=== PATIENT | female | born 1990 | race Caucasian/White ===

== ENCOUNTER 2016-12-04 15:23 | Emergency (ER) | payer BC ==
[2016-12-04 15:42] VITALS: BP 118/72
--- NOTE | 2016-12-04 16:09 | UC ---
Ear Complaint HPI - HPI Summary HPI Summary: LEFT EAR PAIN SINCE THIS MORNING. HAD UPPER RESORATORY INFECTION WITH CONGESTION LAST WEEK. FEVER UNKNOWN, HAS TAKEN IBUPROFEN RECENTLY - History of Current Complaint Chief Complaint: UCEar Stated Complaint: EAR ACHE Time Seen by Provider: 12/04/16 15:37 Hx Obtained From: Patient Hx Last Menstrual Period: 3 WEEKS AGO Onset/Duration: Gradual Onset, Lasting Hours, Still Present Severity Initially: Mild Severity Currently: Mild Pain Intensity: 2 Pain Scale Used: 0-10 Numeric Alleviating Factors: Nothing Associated Signs/Symptoms: Positive: URI Symptoms - Allergies/Home Medications Allergies/Adverse Reactions: Allergies Allergy/AdvReac Type Severity Reaction Status Date / Time No Known Allergies Allergy Verified 12/04/16 15:42 Home Medications: Home Medications Control* 1 tab PO DAILY 12/04/16 [History Confirmed 12/04/16] Ibuprofen TAB* [Advil TAB*] 400 mg PO PRN 12/04/16 [History] Multiple Vitamins W/ Minerals [Multivitamin Adults] 1 tab PO DAILY 12/04/16 [ History Confirmed 12/04/16] PMH/Surg Hx/FS Hx/Imm Hx Previously Healthy: Yes - Surgical History Surgical History: Yes Surgery Procedure, Year, and Place: WISDOM TEETH - Family History Known Family History: Positive: Respiratory Disease - MOTHER COPD - Social History Occupation: Employed Full-time Lives: With Family Alcohol Use: Occasionally Substance Use Type: Marijuana Smoking Status (MU): Never Smoked Tobacco Review of Systems Constitutional: Negative Skin: Negative Eyes: Negative ENT: Ear Ache, Nasal Discharge Respiratory: Negative Cardiovascular: Negative Gastrointestinal: Negative Genitourinary: Negative Motor: Negative Neurovascular: Negative Musculoskeletal: Negative Neurological: Negative Psychological: Negative All Other Systems Reviewed And Are Negative: Yes Physical Exam Triage Information Reviewed: Yes Appearance: Well-Appearing, No Pain Distress, Well-Nourished Vital Signs: Initial Vital Signs Temp 97.3 F 12/04/16 15:39 Pulse 85 12/04/16 15:39 Resp 16 12/04/16 15:39 BP 118/72 12/04/16 15:39 Pulse Ox 98 12/04/16 15:39 Vital Signs Reviewed: Yes Eye Exam: Normal Eyes: Positive: Conjunctiva Clear ENT: Positive: Hearing grossly normal, Pharynx normal, Nasal congestion, TM red - LEFT Dental Exam: Normal Neck exam: Normal Neck: Positive: Supple, Nontender, No Lymphadenopathy Respiratory Exam: Normal Respiratory: Positive: Chest non-tender, Lungs clear, Normal breath sounds, No respiratory distress, No accessory muscle use Cardiovascular Exam: Normal Cardiovascular: Positive: RRR, No Murmur, Pulses Normal Abdominal Exam: Normal Abdomen Description: Positive: Nontender, No Organomegaly Musculoskeletal Exam: Normal Musculoskeletal: Positive: Strength Intact, ROM Intact Neurological Exam: Normal Psychological Exam: Normal Psychological: Positive: Normal Response To Family Skin Exam: Normal Ear Complaint Course/Dx - Differential Dx/Diagnosis Differential Diagnosis/HQI/PQRI: Otitis Media, URI Provider Diagnoses: LEFT OTITIS MEDIA Discharge - Discharge Plan Condition: Stable Disposition: HOME Prescriptions: Amoxicillin/Clavulanate TAB* [Augmentin TAB 875*] 875 mg PO BID #20 tab Patient Education Materials: Otitis Media (ED) Referrals: Blayne Scott MD [Medical Doctor] -
== END 2016-12-04 16:04 | disposition home or self-care (01) ==
LOC: UCEAST 15:23
DX: H66.92 Otitis media, unspecified, left ear (principal); F12.90 Cannabis use, unspecified, uncomplicated
CPT/HCPCS: 99202; G0463

== ENCOUNTER 2017-05-04 11:11 | Emergency (ER) | payer BC ==
[2017-05-04 11:35] VITALS: BP 129/90
--- NOTE | 2017-05-04 12:18 | UC ---
Keshia Da Silva Claudia, scribed for Darren Rucker MD on 05/04/17 at 1201 . Abdominal Pain Female HPI - HPI Summary HPI Summary: 26 year old female presents to the [facility] with diarrhea for 2 weeks. Pt states watery diarrhea and loose stools with abd pain post using the bathroom. She states about 4 bouts per day. Pt denies any fever, abd cramping, chills. Pt also notes associated Sx of loss of appetite. She notes her has similar Sx but not as bad as she is experiencing. She states she has been feeling dehydrated since onset of the diarrhea and has been drinking more. Pt states she called her PCP in her hometown this week whom recommended her come to the Urgent Care. Pt denies having any recent blood-work drawn since her PCP is not in [place]. She took some Tums/Pepto Bismol with no alleviation of Sx. Pt is not allergic or intolerant to any foods including dairy. She denies any recent camping, swimming or recent travel. Pt notes that she is leaving for the [place] tomorrow for the rest of the summer. - History of Current Complaint Chief Complaint: UCAbdominalPain Stated Complaint: ABDOMINAL COMPLAINT Time Seen by Provider: 05/04/17 11:53 Hx Obtained From: Patient Hx Last Menstrual Period: 04/26/17 Onset/Duration: Sudden Onset, Lasting Weeks, Still Present Associated Signs and Symptoms: Positive: Diarrhea Allergies/Adverse Reactions: Allergies Allergy/AdvReac Type Severity Reaction Status Date / Time Metronidazole [From Flagyl] Allergy Hair Loss Verified 05/04/17 11:36 Home Medications: Home Medications NK [No Home Medications Reported] 05/04/17 [History Confirmed 05/04/17] PMH/Surg Hx/FS Hx/Imm Hx Previously Healthy: Yes - Surgical History Surgical History: Yes Surgery Procedure, Year, and Place: WISDOM TEETH - Family History Known Family History: Positive: Respiratory Disease - MOTHER COPD - Social History Occupation: Employed Full-time Lives: With Family Alcohol Use: Weekly Substance Use Type: None Smoking Status (MU): Never Smoked Tobacco Review of Systems Constitutional: Negative - NO FEVER CHILLS Skin: Negative Eyes: Negative ENT: Negative Respiratory: Negative Cardiovascular: Negative Gastrointestinal: Negative Genitourinary: Negative Motor: Negative Neurovascular: Negative Musculoskeletal: Negative Neurological: Negative Psychological: Negative All Other Systems Reviewed And Are Negative: Yes Physical Exam Triage Information Reviewed: Yes Appearance: Well-Appearing, No Pain Distress, Well-Nourished Vital Signs: Initial Vital Signs Temp 98.0 F 05/04/17 11:31 Pulse 118 05/04/17 11:31 Resp 20 05/04/17 11:31 BP 129/90 05/04/17 11:31 Pulse Ox 99 05/04/17 11:31 Vital Signs Reviewed: Yes Eyes: Positive: Conjunctiva Clear ENT: Positive: Normal ENT inspection, Hearing grossly normal, Pharynx normal Neck exam: Normal Neck: Positive: Supple, Nontender, No Lymphadenopathy Respiratory: Positive: Chest non-tender, Lungs clear, Normal breath sounds Cardiovascular: Positive: Tachycardia Abdomen Description: Positive: Nontender, No Organomegaly, Soft. Negative: CVA Tenderness (R), CVA Tenderness (L), Distended, Guarding Bowel Sounds: Positive: Present Musculoskeletal Exam: Normal Musculoskeletal: Positive: Strength Intact, No Edema Skin Exam: Normal Skin: Negative: rashes Abd Pain Female Course/Dx - Differential Dx/Diagnosis Provider Diagnoses: diarrhea Discharge - Discharge Plan Condition: Stable Disposition: HOME Patient Education Materials: Acute Diarrhea (ED) Referrals: Blayne Scott MD [Primary Care Provider] - 7 Days Additional Instructions: will check CBC, CMP , TSH , also check stool culture and c.diff call the office in 2 days for the lab results The documentation as recorded by the Keshia zelaya Claudia accurately reflects the service I personally performed and the decisions made by Chaim clarke Hossein, MD.
[2017-05-04 16:31] LABS: Hematocrit 44 % (35-47); Hemoglobin 14.6 g/dl (12.0-16.0); Mean Corpuscular HGB Conc 33 g/dl (31-36); Mean Corpuscular Hemoglobin 29 pg (27-31); Mean Corpuscular Volume 88 fL (80-97); Mean Platelet Volume 10 um3 (7.4-10.4); Red Blood Count 5.02 10^6/ul (4.0-5.4); Red Cell Distribution Width 14 % (10.5-15); White Blood Count 8.3 10^3/ul (3.5-10.8)
[2017-05-04 16:44] LABS: Albumin 4.3 g/dL (3.2-5.2); BUN/Creatinine Ratio 15.4 (8-20); Calcium 9.7 mg/dL (8.6-10.3); EGFR African American 95.4 (>60); EGFR Non-African American 74.2 (>60); Globulin 3.1 g/dL (2-4); Potassium 4.2 mmol/L (3.5-5.0); Total Bilirubin 1.9 mg/dL (0.2-1.0); Total Protein 7.4 g/dL (6.4-8.9)
[2017-05-04 16:51] LABS: TSH (Thyroid Stimulating Horm) 1.09 mcIU/mL (0.34-5.60)
--- NOTE | 2017-05-05 10:24 | ED ---
Course/Dx - Course Course Of Treatment: LABS REVIEWED. T.BILI IS ELEVATED AT 1.9 (NL 0.2-1.0). TSH NL. REST OF CMP NL. CBC NL. 027 NEG. C.DIFF NEG. NURSING TO CALL PATIENT, INFORM PT OF RESULTS. F/U WITH PMD CONCERNING THE ELEVATED T.BILI. IF PATIENT FEELS ILL, SHE SHOULD BE REEVALUATED SOON. IF SHE FEELS WELL THEN REEVAL /T.BILI RECHECK IS NOT URGENT. - Diagnoses Provider Diagnoses: Diarrhea
== END 2017-05-04 12:34 | disposition home or self-care (01) ==
LOC: UCEAST 11:11
DX: R19.7 Diarrhea, unspecified (principal)
CPT/HCPCS: 36415; 80053; 84443; 85025; 87045; 87046; 87077; 87493; 87899; 99211; G0463